=== PATIENT | female | born 1975 | race African-American/Black ===

== ENCOUNTER 2019-03-06 18:57 | Emergency (ER) | payer BC, MEDICAID ==
[~2019-03-06] VITALS: Ht 167.6 cm; Wt 113.0 kg
[2019-03-06] MEDS ORDERED: ONDANSETRON HCL 4MG/2ML INJ IV STA (22:39)
[2019-03-06] MEDS ORDERED: SODIUM CHLORIDE 0.9% 1,000 ML IV ONE (22:39)
[2019-03-06] MEDS ORDERED: MECLIZINE 25MG TABLET PO ONE (22:45)
[2019-03-07 00:09] LABS: BASOPHILS % 1.3 % (0.0-2.0); EOSINOPHILS % 1.6 % (0.0-5.0); HEMATOCRIT. 31.2 % (36.0-48.0); HEMOGLOBIN. 9.9 g/dL (12.0-16.0); LYMPHOCYTES % 31.6 % (20.0-50.0); MEAN CORPUSCULAR HEMOGLOBIN 20.5 pg (28.0-32.0); MEAN CORPUSCULAR VOLUME 64.6 fL (81.0-99.0); MEAN PLATELET VOLUME 7.6 fl (7.4-10.4); MONOCYTES % 9.2 % (2.0-8.0); NEUTROPHILS % 56.3 % (40.0-76.0); PLATELET 438 x1000/uL (130-400); RED BLOOD CELL COUNT 4.83 mill/uL (4.2-5.4); RED CELL DISTRIBUTION WIDTH 20.6 % (11.6-14.6)
[2019-03-07 00:15] LABS: PLATELET ESTIMATE NORMAL
[2019-03-07 00:16] LABS: CHLORIDE 107 mEq/L (98-107)
[2019-03-07 00:18] LABS: *COCAINE SCREEN URINE NEGATIVE (NEGATIVE); METHADONE URINE SCREEN NEGATIVE (NEGATIVE); OPIATES URINE SCREEN NEGATIVE (NEGATIVE)
[2019-03-07 00:19] VITALS: BP 123/78
[2019-03-07 00:19] LABS: *AMPHETAMINES SCREEN URINE NEGATIVE (NEGATIVE); *BARBITURATES SCREEN URINE NEGATIVE (NEGATIVE); *BENZODIAZEPINES SCREEN URINE NEGATIVE (NEGATIVE); CANNABINOID URINE SCREEN NEGATIVE (NEGATIVE); PHENCYCLIDINE URINE SCREEN NEGATIVE (NEGATIVE)
[2019-03-07 00:21] LABS: ETHANOL BLOOD < 10 mg/dL
[2019-03-07 00:38] LABS: HCG SCREEN NEGATIVE
[2019-03-07] MEDS ORDERED: FAMOTIDINE 20MG/2ML VIAL IV ONE (01:15)
[2019-03-07] MEDS ORDERED: MAGNESIUM/ALUMINUM HYDROXIDE/SIMETHICONE 30ML UDC PO ONE (01:15)
== END 2019-03-07 02:03 | disposition home or self-care (01) ==
LOC: ER 18:57
DX: R42 Dizziness and giddiness (principal); R51 Headache; K21.9 Gastro-esophageal reflux disease without esophagitis; D64.9 Anemia, unspecified
CPT/HCPCS: 36415; 70450; 80053; 80305; 80320; 83690; 83880; 84443; 84484; 84703; 85025; 93005; 96374; 96375; 99284; J2405; J3490; J7030; J8597; G0480

== ENCOUNTER 2019-04-29 06:49 | Emergency (ER) | payer BC ==
[~2019-04-29] VITALS: Ht 167.6 cm; Wt 109.0 kg
[2019-04-29] MEDS ORDERED: KETOROLAC 60MG/2ML VIAL IM STA (07:24)
[2019-04-29 07:37] LABS: CLARITY URINE CLEAR (CLEAR); COLOR URINE YELLOW (YELLOW); KETONES URINE NEGATIVE (NEGATIVE); LEUKOCYTE ESTERASE URINE NEGATIVE (NEGATIVE); NITRITE URINE NEGATIVE (NEGATIVE); OCCULT BLOOD URINE NEGATIVE (NEGATIVE); PH URINE 6.5 (4.5-8.0); PROTEIN URINE NEGATIVE (NEGATIVE); SPECIFIC GRAVITY URINE 1.012 (1.005-1.030); UROBILINOGEN URINE 0.2 E.U./dL (0.2-1.0)
[2019-04-29 08:11] VITALS: BP 144/86
== END 2019-04-29 08:11 | disposition home or self-care (01) ==
LOC: ER 06:49
DX: M54.5 Low back pain (principal)
CPT/HCPCS: 81003; 81025; 96372; 99283; J1885

== ENCOUNTER 2019-08-29 07:04 | Emergency (ER) | payer BC ==
[~2019-08-29] VITALS: Ht 170.2 cm; Wt 115.0 kg
[2019-08-29 07:21] VITALS: BP 154/90
[2019-08-29] MEDS ORDERED: PREDNISONE 20MG TABLET PO STA (07:35)
[2019-08-29] MEDS ORDERED: IPRATROPIUM/ALBUTEROL 0.5-3(2.5)MG/3ML NEB HHN ONE (07:45)
== END 2019-08-29 09:52 | disposition home or self-care (01) ==
LOC: ER 07:04
DX: J45.901 Unspecified asthma with (acute) exacerbation (principal); J02.9 Acute pharyngitis, unspecified; I10 Essential (primary) hypertension; E11.9 Type 2 diabetes mellitus without complications; Z98.51 Tubal ligation status
CPT/HCPCS: 71045; 81025; 94640; 99283; J7512; J7610; Z7610